=== PATIENT | female | born 1995 | race Caucasian/White ===

== ENCOUNTER → 2017-01-17 | Outpatient (CLI) | payer BC ==
--- NOTE | 2017-01-17 10:23 | EKG ---
[address] [address] Measurements Intervals [place] Rate: 44 P: 40 AR: 126 QRS: 101 QRSD: 93 T: 83 QT: 516 QTc: 467 Interpretive Statements SINUS BRADYCARDIA WITH OCCASIONAL SUPRAVENTRICULAR PREMATURE COMPLEXES MARKED RIGHT AXIS DEVIATION [QRS AXIS > 100] INCOMPLETE RIGHT BUNDLE BRANCH BLOCK [90+ ms QRS DURATION, TERMINAL R IN V1/V2, 40+ ms S IN I/aVL/V4/V5/V6] MODERATE T-WAVE ABNORMALITY, CONSIDER ANTERIOR ISCHEMIA [-0.1+ mV T WAVE IN V3/V4] vs juvenile normal No previous ECG available for comparison Electronically Signed On 01-17-17 11:04:53 MDT by Julio Cesar Iraheta MD [email or web address]
[2017-01-17 11:21] LABS: BLOOD UREA NITROGEN 10 mg/dL (7-22); BUN/CREATININE RATIO 11.11 (6-20); EST GLOMERULAR FILTRATION > 60 (>60 ml/min/1.73m(2)); SERUM ALBUMIN 4.4 g/dL (3.7-5.6)
[2017-01-17 12:04] LABS: HEMATOCRIT 43.2 % (37.0-47.0); HEMOGLOBIN 14.7 g/dL (12.0-16.0); MEAN CORPUSCULAR HEMOGLOBIN 29.2 PG (27-31); MEAN CORPUSCULAR VOLUME 85.9 FL (81-99); RED BLOOD COUNT 5.03 10^6/uL (4.20-5.40)
[2017-01-17 12:05] LABS: BASOPHILS # (AUTO) 0.04 10*3/UL; EOSINOPHILS # (AUTO) 0.05 10*3/UL; EOSINOPHILS % (AUTO) 1.3 % (0-8); LYMPHOCYTES # (AUTO) 1.86 10*3/uL; MEAN PLATELET VOLUME 10.3 FL (7.4-12.2); MONOCYTES % (AUTO) 7.8 % (5-15); NEUTROPHILS # (AUTO) 1.59 10*3/UL; NEUTROPHILS % (AUTO) 41.3 % (50-80)
[2017-01-17 12:06] LABS: PLATELET MORPHOLOGY COMMENT NORMAL MORPHOLOGY (NORM); RBC MORPHOLOGY COMMENT NORMAL MORPHOLOGY (NORM); WBC MORPHOLOGY COMMENT NORMAL MORPHOLOGY (NORM)
== END ==
LOC: MOB LAB 10:17
PROVIDERS: ATTEND Pediatrics Pediatric Endocrinology
DX: E05.00 Thyrotoxicosis with diffuse goiter without thyrotoxic crisis or storm (principal); R00.1 Bradycardia, unspecified; I45.10 Unspecified right bundle-branch block; R63.0 Anorexia; Z72.0 Tobacco use
CPT/HCPCS: 36415; 80053; 82306; 83519; 84439; 84443; 84445; 84481; 85025; 93005; 93010